=== PATIENT | female | born 2000 | race Caucasian/White ===

== ENCOUNTER 2018-03-28 19:43 | Emergency (ER) | payer BC ==
[2018-03-28 20:14] VITALS: BP 122/78
--- NOTE | 2018-03-28 20:53 | ED ---
GI/ HPI - HPI Summary HPI Summary: 17 yo WF h/o lana's and hypothyroidism p/w sore throat radiating to right ear associated and that started with URI sx with cough, congestion and chills left sided LBP x 3-4 days . Denies urinary sx but pain in her left lower back, throat and right ear pain is worsening so badly that she is tearful. - History of Current Complaint Chief Complaint: UCGeneralIllness Time Seen by Provider: 03/28/18 20:41 Stated Complaint: LEFT SIDE BACK PAIN/COUGH SORE THROAT Hx Obtained From: Patient Hx Last Menstrual Period: 03/23/18 Onset/Duration: Started Days Ago Timing: Constant Severity: Severe Current Severity: Moderate Pain Intensity: 9 Location of Pain: Flank - LEFT lower back Pain Characteristics: Sharp, Aching Associated Signs and Symptoms: Positive: Back Pain, Flank Pain, Chills. Negative: UTI Symptoms Aggravating Factor(s): Movement, Swallowing Alleviating Factor(s): Nothing - Allergy/Home Medications Allergies/Adverse Reactions: Allergies Allergy/AdvReac Type Severity Reaction Status Date / Time No Known Allergies Allergy Verified 03/28/18 20:14 Home Medications: Home Medications Bcp 1 tab DAILY 03/28/18 [History Confirmed 03/28/18] Gabapentin CAP(*) [Neurontin 100 mg CAP(*)] 300 mg PO BEDTIME 03/28/18 [History Confirmed 03/28/18] Levothyroxine TAB* [Synthroid 100 MCG TAB*] 200 mcg PO BEDTIME 03/28/18 [ History Confirmed 03/28/18] Liothyronine TAB* [Cytomel TAB*] 5 mcg PO BEDTIME 03/28/18 [History Confirmed ] Naproxen [Naproxen 500 mg tab] 500 mg PO BID 03/28/18 [History Confirmed ] PMH/Surg Hx/FS Hx/Imm Hx Previously Healthy: No - hashimotos, hypothyroidism Respiratory History: Reports: Hx Asthma - Lana's Infectious Disease History: No Infectious Disease History: Denies: Traveled Outside the [place] in Last 30 Days - Social History Alcohol Use: Occasionally Substance Use Type: Reports: None Smoking Status (MU): Never Smoked Tobacco Review of Systems Positive: Fever, Chills Eyes: Negative Positive: Sore Throat, Ear Ache Cardiovascular: Negative Respiratory: Other Positive: Cough Gastrointestinal: Negative Positive: see HPI, flank pain - LEFT. Negative: burning, dysuria, frequency, hematuria Musculoskeletal: Negative Skin: Negative Neurological: Negative Psychological: Normal All Other Systems Reviewed And Are Negative: Yes Physical Exam - Summary Physical Exam Summary: Vital Signs Reviewed: Yes Appearance: Positive: tearful, pain distress Skin: Positive: Warm Head/Face: Positive: Normal Head/Face Inspection Eyes: Positive: Normal, EOMI, ZAMZAM ENT: Positive: right posterior auricular tenderness, TM WNL, B/L pharyngeal erythema w/o exudates Neck: Positive: Supple, mild B/L cervical LAD Respiratory/Lung Sounds: Positive: Clear to Auscultation Cardiovascular: Positive: Normal, RRR, S1, S2 Abdomen Description: Positive: neg suprapubic tenderness, LEFT CVA tenderness Musculoskeletal: Positive: Normal Neurological: Positive: CN Intact II-XII Psychiatric: Positive: Normal Triage Information Reviewed: Yes Vital Signs On Initial Exam: Initial Vitals Temp Pulse Resp BP Pulse Ox 37.1 C 94 16 122/78 99 03/28/18 20:10 03/28/18 20:10 03/28/18 20:10 03/28/18 20:10 03/28/18 20:10 Vital Signs Reviewed: Yes Diagnostics - Vital Signs Vital Signs Temp Pulse Resp BP Pulse Ox 03/28/18 20:10 37.1 C 94 16 122/78 99 - Laboratory Lab Results: Lab Results 03/28/18 Range/Units 20:29 Group A Strep Rapid Negative (Negative) Lab Statement: Any lab studies that have been ordered have been reviewed, and results considered in the medical decision making process. GIGU Course/Dx - Course Assessment/Plan: pharyngitis- rapid strep neg- sent out for cx. right post auricular tenderness- may be evolving R OM- cover with cefdinir. Left CVA tenderness- UA neg for LE or nitrites but pH ABNORMAL, WILL COVER for bacteria resp for pyelo and will send out for urine cx. CXR- neg for infiltrates. 1st dose of cefdinir given in UC - Diagnoses Provider Diagnoses: Pharyngitis, Costovertebral angle tenderness, Right otitis media Discharge - Sign-Out/Discharge Documenting (check all that apply): Patient Departure All imaging exams completed and their final reports reviewed: Yes - Discharge Plan Condition: Stable Disposition: HOME Prescriptions: Cefuroxime 500 MG(NF) 500 mg PO BID 7 Days #14 tab Patient Education Materials: Ear Infection (ED), Flank Pain (ED) Additional Instructions: Go to ER if symptoms worsen and follow up with your PCP in 2-3 days - Billing Disposition and Condition Condition: STABLE Disposition: Home
[2018-03-28] MEDS ORDERED: cefTRIAXone VIAL(*) 1,000 MG VIAL IM ONE (21:41)
[2018-03-28] MEDS ORDERED: Lidocaine 1% MPF* 2 ML VIAL INJ ONE (21:42)
[2018-03-28] MEDS ORDERED: ceFUROXime TAB(*) 250 MG PO ONE (21:47)
--- NOTE | 2018-03-29 08:53 | RAD ---
INDICATION: Cough and low back pain COMPARISON: None TECHNIQUE: PA and lateral views of the chest were obtained. FINDINGS: The heart and mediastinum are normal in size and contour. The lungs are grossly clear. There is no evidence of large pleural effusion. Visualized bones are normal for the patient's age. There is no radiographic evidence of free air beneath the diaphragm IMPRESSION: No radiographic evidence of acute cardiopulmonary disease. R1NF
== END 2018-03-28 22:00 | disposition home or self-care (01) ==
LOC: UCCORT 19:43
DX: J02.9 Acute pharyngitis, unspecified (principal); R10.813 Right lower quadrant abdominal tenderness; H66.91 Otitis media, unspecified, right ear; J45.909 Unspecified asthma, uncomplicated; E06.3 Autoimmune thyroiditis; Z79.899 Other long term (current) drug therapy
CPT/HCPCS: 71046; 81003; 87070; 87086; 87651; 99202; G0463; J0696

== ENCOUNTER 2019-03-02 15:46 | Emergency (ER) | payer BC ==
[2019-03-02 15:58] VITALS: BP 124/75
--- NOTE | 2019-03-02 16:45 | UC ---
UC General HPI - HPI Summary HPI Summary: 18 year old female comes in with a chief complaint of left sided facial weakness and numbness which started yesterday. She's had upper respiratory tract infection symptoms for more than a week which has been improving. Yesterday she noticed the left side of her tongue and left side of her face felt swollen. Also noticed decreased sensation. Is also noticing that the left eyelid is moving slower has less strength than the right eyelid. No headache. Occasionally speech is difficult with a decrease in sensation of the tongue normally it's not a problem. Denies any other weakness or numbness in the arms or legs. - History of Current Complaint Chief Complaint: UCGeneralIllness Stated Complaint: MOUTH,TONGUE NUMBNESS Time Seen by Provider: 03/02/19 16:16 Hx Last Menstrual Period: 02/23/19 Pain Intensity: 0 - Allergy/Home Medications Allergies/Adverse Reactions: Allergies Allergy/AdvReac Type Severity Reaction Status Date / Time No Known Allergies Allergy Verified 03/02/19 15:48 PMH/Surg Hx/FS Hx/Imm Hx Previously Healthy: Yes Endocrine History: Hypothyroidism - Surgical History Surgical History: Yes Surgery Procedure, Year, and Place: TONSILECTOMY - Family History Known Family History: Positive: Non-Contributory - Social History Alcohol Use: Occasionally Substance Use Type: None Smoking Status (MU): Never Smoked Tobacco Review of Systems All Other Systems Reviewed And Are Negative: Yes Constitutional: Positive: Negative Skin: Positive: Negative Eyes: Positive: Negative ENT: Positive: Other - SEE HPI Respiratory: Positive: Negative Cardiovascular: Positive: Negative Gastrointestinal: Positive: Negative Motor: Positive: Other - SEE HPI Neurovascular: Positive: Decreased Sensation Musculoskeletal: Positive: Other: - SEE HPI Neurological: Positive: Other - SEE HPI Psychological: Positive: Negative Is Patient Immunocompromised?: No Physical Exam Triage Information Reviewed: Yes Appearance: Well-Appearing, No Pain Distress, Well-Nourished Vital Signs: Initial Vital Signs Temp 98.3 F 03/02/19 15:50 Pulse 93 03/02/19 15:50 Resp 20 03/02/19 15:50 BP 124/75 03/02/19 15:50 Pulse Ox 98 03/02/19 15:50 Vital Signs Reviewed: Yes Eyes: Positive: Conjunctiva Clear ENT: Positive: Pharynx normal, TMs normal Neck: Positive: Supple Respiratory: Positive: Lungs clear, Normal breath sounds, No respiratory distress Cardiovascular: Positive: RRR Musculoskeletal: Positive: No Edema Neurological: Positive: Alert, Other: - patient has a mild left sided facial droop that includes the left forehead and left eyelid. When she raises her eyebrows the left eyebrow goes up slower and is not as strong. Also with opening and closing the eyes the left eyelid lags behind the right eyelid. She is able to open and close both eyes completely. Reports decreased sensation on the left side of the face comparison to the right side of the face. Smile on the left goes up slightly less than on the right. Tongue is midline. 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 Psychological: Positive: Age Appropriate Behavior Skin Exam: Normal Course/Dx - Course Course Of Treatment: Patient's examination is consistent with left-sided Lee's palsy. The left eyelid and left forehead are affected. There is no other focal neurologic deficit. The plan is to treat with prednisone 60 mg daily once a day for 7 days and also for valacyclovir 1 g by mouth 3 times a day for 7 days. Lyme screen was drawn patient has no history of any tick bites or bull's-eye rash. Patient's the [employer] student will be following up with them and also with her home physician. We discussed that if anything changes got worse she needed further evaluation emergency Department. - Diagnoses Provider Diagnosis: Left-sided Lee's palsy Discharge ED - Sign-Out/Discharge Documenting (check all that apply): Patient Departure All imaging exams completed and their final reports reviewed: No Studies - Discharge Plan Condition: Stable Disposition: HOME Prescriptions: predniSONE TAB* [Deltasone 20 MG TAB*] 60 mg PO DAILY #21 tab Valacyclovir HCl [Valacyclovir] 1,000 mg PO TID #21 tab Patient Education Materials: Lee Palsy (ED) Referrals: [facility] [Outside] Additional Instructions: FOLLOW UP WITH YOUR DOCTOR. GET REEVALUATED SOONER IF NOT IMPROVING OR GO TO THE EMERGENCY DEPARTMENT IF YOUR CONDITION WORSENS; DIFFICULTY WITH VISION OR SPEECH, WEAKNESS OR NUMBNESS AT ANY OTHER LOCATION, FEVER, YOU FEEL ILL ANY QUESTIONS OR CONCERNS - Billing Disposition and Condition Condition: STABLE Disposition: Home
== END 2019-03-02 17:02 | disposition home or self-care (01) ==
LOC: UCCORT 15:46
DX: G51.0 Bell's palsy (principal)
CPT/HCPCS: 36415; 86618; 99212; G0463

== ENCOUNTER 2019-07-12 16:07 | Emergency (ER) | payer BC ==
[2019-07-12 16:47] VITALS: BP 118/70
--- NOTE | 2019-07-12 17:34 | UC ---
Hand/Wrist HPI - HPI Summary HPI Summary: 18yo female presenting with L hand, wrist, and 2nd and 3rd finger pain and swelling since yesterday after she fell while snowboarding. Denies bruising. Denies decreased ROM. Denies numbness and tingling. States pain is "soreness" and worse than yesterday. - History Of Current Complaint Chief Complaint: UCUpperExtremity Stated Complaint: LEFT HAND INJURY Hx Obtained From: Patient Hx Last Menstrual Period: 07/11/19 Pain Intensity: 7 Pain Scale Used: 0-10 Numeric - Allergies/Home Medications Allergies/Adverse Reactions: Allergies Allergy/AdvReac Type Severity Reaction Status Date / Time No Known Allergies Allergy Verified 07/12/19 16:43 Home Medications: Home Medications Escitalopram Oxalate [Lexapro 10 mg] 10 mg PO DAILY 07/12/19 [History Confirmed 07/12/19] PMH/Surg Hx/FS Hx/Imm Hx Previously Healthy: Yes Endocrine History: Hypothyroidism - Surgical History Surgical History: Yes Surgery Procedure, Year, and Place: tonsillectomy - Family History Known Family History: Positive: Non-Contributory - Social History Alcohol Use: None Substance Use Type: None Smoking Status (MU): Never Smoked Tobacco Review of Systems All Other Systems Reviewed And Are Negative: No Constitutional: Positive: Negative Skin: Positive: Negative. Negative: Bruising Respiratory: Positive: Negative Cardiovascular: Positive: Negative Musculoskeletal: Positive: Arthralgia - L hand, wrist, 2nd/3rd fingers, Edema. Negative: Decreased ROM Neurological/Mental Status: Positive: Negative. Negative: Paresthesia, Numbness Physical Exam - Summary Physical Exam Summary: Vital Signs Reviewed: Yes A+Ox3, no distress Eyes: Conjunctiva Clear ENT: Hearing grossly normal neck: supple Respiratory: Positive: No respiratory distress, No accessory muscle use Cardiovascular: skin color reflect adequate perfusion Musculoskeletal Exam: DUNBAR x 4 without difficulty, +minimal TTP left 2nd/3rd MCP joints, mild edema of 2nd/3rd proximal phalanges, wrist and fingers flexion/ extension intact, handgrip strength intact, sensation grossly intact, 2+radial pulses b/l Neurological: Positive: Alert Psychological: Positive: age appropriate behavior Skin: Positive: no rash, no ecchymosis Vital Signs: Initial Vital Signs Temp 98.3 F 07/12/19 16:44 Pulse 79 07/12/19 16:44 Resp 16 07/12/19 16:44 BP 118/70 07/12/19 16:44 Pulse Ox 100 07/12/19 16:44 Diagnostics - Radiology L hand Radiology Interpretation Completed By: Radiologist Summary of Radiographic Findings: IMPRESSION: No fracture of the left hand is noted. Special attention paid to the second and third metacarpals. L wrist Radiology Interpretation Completed By: Radiologist Summary of Radiographic Findings: IMPRESSION: NO FRACTURE OF THE WRIST IS NOTED. Hand/Wrist Course/Dx - Course Course Of Treatment: Discussed negative radiographs with patient and mother. Instructed to continue with RICE and provided patient with cock up splint for support. INstructed to follow up with ortho if pain does not improve within 1-2 weeks. Patient voiced understanding and agreed with treatment plan. - Differential Dx/Diagnosis Provider Diagnosis: Sprain of unspecified part of left wrist and hand, initial encounter Discharge ED - Sign-Out/Discharge Documenting (check all that apply): Patient Departure All imaging exams completed and their final reports reviewed: Yes - Discharge Plan Condition: Stable Disposition: HOME Patient Education Materials: Hand Sprain (ED), Wrist Sprain (ED) Referrals: Kb Rodgres MD [Medical Doctor] - If Needed Additional Instructions: Your radiographs were normal today. Rest, ice, and elevate to help alleviate pain. You may also use the splint during the day for support. Use over the counter pain medications as directed for pain relief. Refrain from physical activity until pain has fully resolved. If symptoms persist or worsen, follow up with the orthopedic referral listed below. - Billing Disposition and Condition Condition: STABLE Disposition: Home - Attestation Statements Provider Attestation: This patient was not seen by me. I was available for consult. Chart reviewed. AIDE
== END 2019-07-12 17:52 | disposition home or self-care (01) ==
LOC: UCCORT 16:07
DX: S63.502A Unspecified sprain of left wrist, initial encounter (principal); W17.89XA Other fall from one level to another, initial encounter; Y93.23 Activity, snow (alpine) (downhill) skiing, snowboarding, sledding, tobogganing and snow tubing; Y92.9 Unspecified place or not applicable
CPT/HCPCS: 99213; G0463